=== PATIENT | female | born 1990 | race Caucasian/White ===

== ENCOUNTER → 2017-12-24 | Outpatient (CLI) | payer OTHER | LOC: M RAD 12:34 | DX: Z36.89 Encounter for other specified antenatal screening (principal); Z3A.20 20 weeks gestation of pregnancy | CPT/HCPCS: 76817 ==

== ENCOUNTER → 2018-04-14 | Outpatient (REF) | payer OTHER ==
[2018-04-14 13:18] LABS: HEMATOCRIT 39.5 % (36.0-47.0); HEMOGLOBIN 13.6 g/dl (12.0-15.5); MEAN CORPUSCULAR HEMOGLOBIN 31.5 pg (27.0-33.0); MEAN CORPUSCULAR HGB CONC 34.4 g/dl (32.0-36.5); MEAN CORPUSCULAR VOLUME 91.4 fl (80.0-96.0); PLATELET COUNT, AUTOMATED 190 10^3/uL (150-450); RED BLOOD COUNT 4.32 10^6/uL (4.00-5.40); RED CELL DISTRIBUTION WIDTH 13.6 % (11.5-14.5); WHITE BLOOD COUNT 11.5 10^3/uL (4.0-10.0)
[2018-04-14 14:05] LABS: RUBELLA IgG QUALITATIVE IMMUNE (IMMUNE)
[2018-04-14 14:06] LABS: HBsAg Prenatal NEGATIVE (NEGATIVE)
[2018-04-14 14:33] LABS: HEPATITIS C VIRUS ABY INDEX 0.1 INDEX (<0.8)
[2018-04-14 14:34] LABS: HIV 1&2 SCREEN CENTAUR NEGATIVE (NEGATIVE)
== END ==
LOC: M LAB REF 13:06
DX: Z34.83 Encounter for supervision of other normal pregnancy, third trimester (principal); Z36.85 Encounter for antenatal screening for Streptococcus B; Z36.89 Encounter for other specified antenatal screening
CPT/HCPCS: 86762

== ENCOUNTER 2018-04-30 00:32 | Inpatient (IN) | payer OTHER ==
[2018-04-30] MEDS: LR 800 ML IV (01:24)
[2018-04-30 01:44] LABS: HEMATOCRIT 40.2 % (36.0-47.0); HEMOGLOBIN 13.8 g/dl (12.0-15.5); MEAN CORPUSCULAR HEMOGLOBIN 31.9 pg (27.0-33.0); MEAN CORPUSCULAR HGB CONC 34.3 g/dl (32.0-36.5); MEAN CORPUSCULAR VOLUME 92.8 fl (80.0-96.0); PLATELET COUNT, AUTOMATED 153 10^3/uL (150-450); RED BLOOD COUNT 4.33 10^6/uL (4.00-5.40); RED CELL DISTRIBUTION WIDTH 13.9 % (11.5-14.5); WHITE BLOOD COUNT 14.4 10^3/uL (4.0-10.0)
[2018-04-30] MEDS ORDERED: NALOXONE INJ 0.4 MG/1 ML VIAL (J2310) IV (02:28)
[2018-04-30] MEDS ORDERED: LACTATED RINGER'S 1000 ML IV (02:28)
[2018-04-30] MEDS ORDERED: diphenhydrAMINE INJ 50MG/ML VIAL (J1200) IV (02:28)
[2018-04-30] MEDS ORDERED: EPIDURAL COMMENT XX (02:28)
[2018-04-30] MEDS ORDERED: REFRIGERATOR IV KEYS XX (02:28)
[2018-04-30] MEDS ORDERED: FENTANYL/ROPIVACAINE/NACL BAG 200 ML EPIDURAL (02:28)
[2018-04-30] MEDS ORDERED: EPIDURAL/PCA KEYS XX (02:28)
[2018-04-30] MEDS ORDERED: ePHEDrine SULFATE 25 MG/5 ML(5MG/ML) SYRINGE IV (02:28)
[2018-04-30] MEDS ORDERED: ONDANSETRON 4MG/2ML VIAL (J2405) IV (02:28)
[2018-04-30] MEDS ORDERED: FENTANYL 2MCG/ML ROPIVACAINE 0.2% IN 0.9% NACL 200ML IVBAG As Ordered (02:28)
[2018-04-30] MEDS: LR 1,000 ML IV (03:00)
[2018-04-30] MEDS ORDERED: ePHEDrine SULFATE 25 MG/5 ML(5MG/ML) SYRINGE As Ordered (03:23)
[2018-04-30] MEDS ORDERED: OXYTOCIN 30 UNITS IN 0.9% NaCl 500ML IV BAG (J2590) As Ordered (03:43)
[2018-04-30] MEDS: OXYTOCIN DRIP 30 UNITS in APPROPRIATE DILUENT 1 EA IV (04:09)
[2018-04-30 04:22] LABS: CORD GAS ABE V -4.1; CORD GAS HCO3 V 21.3 MEQ/L; CORD GAS O2 SAT V 73.1 %; CORD GAS PCO2 V 40.2 mmHg; CORD GAS PH V 7.342 UNITS; CORD GAS PO2 V 28.7 mmHg; CORD GAS SBC V 20.5 MEQ/L; CORD GAS TCO2 V 22.5 MEQ/L
[2018-04-30] MEDS ORDERED: METHYLERGONOVINE MALEATE 0.2 MG TAB PO (04:30)
[2018-04-30] MEDS ORDERED: DOCUSATE SODIUM 100 MG CAP PO (04:30)
[2018-04-30] MEDS ORDERED: MEASLES,MUMPS,RUBELLA VACCINE INJ (MMR-II) (90707) SC (04:30)
[2018-04-30] MEDS ORDERED: RHOGAM 300 MCG (1500 IU) INJ (J2790) IM (04:30)
[2018-04-30] MEDS: PRENATAL VITAMINS CHEWABLE TABLET PO (09:13)
[2018-04-30] MEDS: IBUPROFEN 800 MG TAB PO ×2 (11:21→19:22)
[2018-04-30] MEDS: ACETAMINOPHEN 500 MG TAB PO (15:33)
[2018-04-30] MEDS: DIBUCAINE 1% OINTMENT 30GM TOP (15:33)
[2018-05-01] MEDS: IBUPROFEN 800 MG TAB PO (05:20)
[2018-05-01] MEDS: PRENATAL VITAMINS CHEWABLE TABLET PO (08:13)
[2018-05-01] MEDS: medroxyPROGESTERone ACET IM SUSP 150 MG/ML VIAL (J1050) IM (08:46)
[2018-05-01] MEDS: ADACEL/BOOSTRIX VACCINE (DIPHTH/PERTUSS/ACELL/TETANUS)0.5ML SYR (90715) IM (08:47)
== END 2018-05-01 10:20 | disposition home or self-care (01) | DRG 560 ==
LOC: M LDO 00:32 → M LDI 01:11 → M OBS 06:17
PROVIDERS: Obstetrics & Gynecology
PROC: 10E0XZZ Delivery of Products of Conception, External Approach (ICD-10-PCS; principal; 2018-04-30)
PROC: 0HQ9XZZ Repair Perineum Skin, External Approach (ICD-10-PCS; 2018-04-30)
PROC: 10907ZC Drainage of Amniotic Fluid, Therapeutic from Products of Conception, Via Natural or Artificial Opening (ICD-10-PCS; 2018-04-30)
DX: O99.334 Smoking (tobacco) complicating childbirth (principal); F17.210 Nicotine dependence, cigarettes, uncomplicated; Z3A.38 38 weeks gestation of pregnancy; O32.6XX0 Maternal care for compound presentation, not applicable or unspecified; Z37.0 Single live birth; O70.0 First degree perineal laceration during delivery

== ENCOUNTER 2019-05-25 18:20 | Emergency (ER) | payer OTHER, SELFPAY ==
[~2019-05-25] VITALS: Ht 165.1 cm; Wt 86.4 kg
[~2019-05-25 18:20] MED LIST: ACET500L PO; COLA100C5 PO; MOTR200T44 PO; OMEP40CA2 PO; PRENTAB55 PO; PROG1CAP8 PO; TUMS500C PO
[2019-05-25] MEDS ORDERED: NS 1,000 ML IV ONE ×2 (18:30→19:30)
[2019-05-25] MEDS: HYDROMORPHONE HCL 0.5 MG/ 0.5 ML SYRINGE (J1170 PER 1) IV PRN ×2 (18:48→19:19)
[2019-05-25 18:54] LABS: BASO # 0.1 10^3/uL (0.0-0.2); BASO % 0.6 % (0.0-1.0); EOS # 0.3 10^3/uL (0.0-0.50); HEMOGLOBIN 14.9 g/dl (12.0-15.5); LYMPH # 2.9 10^3/uL (1.5-6.5); LYMPH % 23.4 % (24.0-44.0); MEAN CORPUSCULAR HEMOGLOBIN 31.2 pg (27.0-33.0); MEAN CORPUSCULAR HGB CONC 34.7 g/dl (32.0-36.5); MEAN CORPUSCULAR VOLUME 90.1 fl (80.0-96.0); MONO % 7.9 % (0.0-5.0); NEUTROPHILS # 8.3 10^3/uL (1.8-7.7); NEUTROPHILS % 65.6 % (36.0-66.0); PLATELET COUNT, AUTOMATED 208 10^3/uL (150-450); RED BLOOD COUNT 4.77 10^6/uL (4.00-5.40); WHITE BLOOD COUNT 12.6 10^3/uL (4.0-10.0)
[2019-05-25] MEDS ORDERED: ISOVUE-370 76% 100ML VIAL (Q9967) As Ordered ONE (19:04)
[2019-05-25 19:23] LABS: ALBUMIN 3.8 GM/DL (3.2-5.2); BILIRUBIN,DIRECT 0.1 MG/DL (0.0-0.2); BILIRUBIN,TOTAL 0.6 MG/DL (0.2-1.0); TOTAL PROTEIN 7.3 GM/DL (6.4-8.2)
[2019-05-25] MEDS ORDERED: KETOROLAC 30 MG/ML VIAL (J1885) As Ordered ONE (19:25)
[2019-05-25] MEDS ORDERED: KETOROLAC 30 MG/ML VIAL (J1885) IV ONE ×2 (19:30→21:15)
--- NOTE | 2019-05-25 19:55 | REPVR ---
EXAM: CT Abdomen and Pelvis With Contrast EXAM DATE/TIME: 05/25/2019 7:06 PM CLINICAL HISTORY: 28 years old, female; Abdominal pain; Localized; Right lower quadrant (rlq); Additional info: Abdominal pain, rlq TECHNIQUE: Imaging protocol: Computed tomography images of the abdomen and pelvis with intravenous contrast. Radiation optimization: All CT scans at this facility use at least one of these dose optimization techniques: automated exposure control; mA and/or kV adjustment per patient size (includes targeted exams where dose is matched to clinical indication); or iterative reconstruction. Contrast material: ISOVUE 370; Contrast volume: 100 ml; Contrast route: IV; COMPARISON: US OBS SINGEL GEST 12/24/2017 12:48 PM FINDINGS: Liver: There is mild diffuse decrease in hepatic parenchymal density, consistent with mild fatty infiltration. Gallbladder and bile ducts: Normal. No calcified stones. No ductal dilation. Pancreas: Normal. No ductal dilation. Spleen: Normal. No splenomegaly. Adrenals: Normal. No mass. Kidneys and ureters: There is a 5 mm. obstructive ureteral calculus located at the right UV junction resulting in moderate to severe proximal hydroureteronephrosis. There is no significant periureteral and perinephric stranding. No urinoma demonstrated. Stomach and bowel: Normal. No obstruction. No mucosal thickening. Appendix: Normal appendix. Intraperitoneal space: Normal. No free air. No significant fluid collection. Vasculature: Normal. No abdominal aortic aneurysm. Lymph nodes: Normal. No enlarged lymph nodes. Bladder: Unremarkable as visualized. Reproductive: Unremarkable as visualized. Bones/joints: No acute fracture. No dislocation. Soft tissues: Unremarkable. Other findings: Spina bifida occulta. IMPRESSION: 1. There is a 5 mm. obstructive ureteral calculus located at the right UV junction resulting in moderate to severe proximal hydroureteronephrosis. There is no significant periureteral and perinephric stranding. No urinoma demonstrated. 2. There is mild diffuse decrease in hepatic parenchymal density, consistent with mild fatty infiltration. Electronically signed by: Demarco Florentino On 05/25/2019 19:54:42 PM
[2019-05-25] MEDS ORDERED: TAMSULOSIN 0.4 MG CAP PO ONE (20:15)
[2019-05-25] MEDS ORDERED: IBUP-1022 PO (21:26)
[2019-05-25] MEDS ORDERED: CIPR250T3 PO (21:26)
[2019-05-25] MEDS ORDERED: FLOM0.4C39 PO (21:26)
[2019-05-25 21:30] VITALS: BP 133/73
[2019-05-25] MEDS ORDERED: CIPROFLOXACIN 250 MG TAB PO ONE (21:30)
[2019-05-25] MEDS ORDERED: OXYCODONE/APAP 5MG/325MG(BULK FOR ED) 1 TABLET PO ONE (21:30)
== END 2019-05-25 22:23 | disposition home or self-care (01) ==
LOC: M ED 18:20
DX: N20.1 Calculus of ureter (principal); N13.2 Hydronephrosis with renal and ureteral calculous obstruction; K21.9 Gastro-esophageal reflux disease without esophagitis; F32.9 Major depressive disorder, single episode, unspecified; Z72.0 Tobacco use; Z79.899 Other long term (current) drug therapy
CPT/HCPCS: 74177; 80047; 80076; 81001; 83605; 83690; 84702; 85025; 86850; 86900; 86901; 87040; 87086; 93041; 96361; 96374; 96375; 96376; 99285; J1170; J1885; Q9967

== ENCOUNTER → 2019-12-06 | Outpatient (REF) | payer OTHER ==
[~2019-12-06] MED LIST changes: +CIPR250T3 PO; +FLOM0.4C39 PO; +IBUP-1022 PO; -OMEP40CA2 PO; +OMEP40CA97 PO
[2019-12-06 13:36] LABS: HEMATOCRIT 43.9 % (36.0-47.0); MEAN CORPUSCULAR HEMOGLOBIN 31.3 pg (27.0-33.0); MEAN CORPUSCULAR HGB CONC 34.2 g/dl (32.0-36.5); MEAN CORPUSCULAR VOLUME 91.6 fl (80.0-96.0); PLATELET COUNT, AUTOMATED 232 10^3/uL (150-450); RED BLOOD COUNT 4.79 10^6/uL (4.00-5.40); WHITE BLOOD COUNT 9.2 10^3/uL (4.0-10.0)
[2019-12-06 14:27] LABS: HCG, SERUM QUANTITATIVE 20605 MIU/ML
[2019-12-07 09:54] LABS: RUBELLA IgG QUALITATIVE IMMUNE (IMMUNE)
[2019-12-07 09:57] LABS: HEPATITIS B SURFACE ANTIGEN NEGATIVE (NEGATIVE)
[2019-12-07 10:24] LABS: HEPATITIS C VIRUS ABY INDEX < 0.0 INDEX (<0.8)
[2019-12-07 10:25] LABS: HIV 1&2 SCREEN CENTAUR NEGATIVE (NEGATIVE)
== END ==
LOC: M LAB REF 12:42
PROVIDERS: ATTEND Obstetrics & Gynecology
DX: O36.80X0 Pregnancy with inconclusive fetal viability, not applicable or unspecified (principal)

== ENCOUNTER → 2019-12-08 | Outpatient (CLI) | payer OTHER ==
--- NOTE | 2019-12-08 14:10 | REP ---
FIRST TRIMESTER ULTRASOUND: Real-time sonographic evaluation of the gravid uterus is performed. There is a single living intrauterine gestation. The estimated gestational age is 6 weeks 3 days based on a crown-rump length of 6 mm. EDC 07/30/2020. heart rate 120 beats per minute. There is no subchorionic hemorrhage. There is a cystic structure of the left ovary 2.7 x 1.9 x 2.2 cm probably representing a corpus luteum. Electronically Signed by Jamaal Eason MD 12/08/2019 08:15 P
== END ==
LOC: M RAD 12:01
PROVIDERS: ATTEND Obstetrics & Gynecology
DX: O36.80X0 Pregnancy with inconclusive fetal viability, not applicable or unspecified (principal)

== ENCOUNTER → 2020-03-16 | Outpatient (CLI) | payer OTHER ==
--- NOTE | 2020-03-17 08:06 | REP ---
REASON: anatomy. Multiple ultrasonographic images of the gravid uterus show a single living intrauterine gestation in the cephalic presentation. Doppler interrogation of the heart shows a heart rate of 147 beats per minute. The placenta is posterior fundal and not low lying. The subjective amniotic fluid volume is within normal limits. The cervix measures 3.9 cm in length and is closed. Evaluation of the maternal adnexal spaces shows no abnormalities. CHART: BPD 5.1 cm = 21 weeks 2 days HC 18.5 cm = 20 weeks 6 days AC 16.2 cm = 21 weeks 2 days FL 3.5 cm = 20 weeks 6 days The estimated weight is 399 grams, which is at the 64th percentile for a 20-week 4-day gestational age. anatomical structures seen as unremarkable are as follows: Thalami, cavum septum pellucidum, cerebellum, cisterna magna, cerebral ventricles, upper lip, four-chamber heart, left ventricular outflow tract, stomach, cord insertion, three-vessel umbilical cord, kidneys, bladder, spine and lower extremities. The right ventricular outflow tract and upper extremities were suboptimally visualized. IMPRESSION: Single living intrauterine gestation, as described above, with an estimated gestational age of 21 weeks 1 day via composite criteria and an estimated date of delivery of 07/26/2020 by today's exam. No anomalies were detected; however, I recommend a followup examination to better visualize those anatomical structures not well seen today, as described above. Electronically Signed by Case Pascal DO 03/19/2020 08:33 A
== END ==
LOC: M RAD 15:04
PROVIDERS: ATTEND Obstetrics & Gynecology
DX: Z34.82 Encounter for supervision of other normal pregnancy, second trimester (principal); Z36.89 Encounter for other specified antenatal screening; Z3A.21 21 weeks gestation of pregnancy

== ENCOUNTER 2020-04-13 06:51 | Emergency (ER) | payer OTHER ==
[~2020-04-13] VITALS: Ht 165.1 cm; Wt 80.0 kg
[2020-04-13] MEDS ORDERED: NS 1,000 ML IV ONE (07:15)
[2020-04-13] MEDS ORDERED: levETIRAcetam INJection 1,000 MG in D5W 100 ML IV ONE (07:30)
[2020-04-13 07:38] LABS: BASO % 0.3 % (0.0-1.0); EOS # 0.1 10^3/uL (0.0-0.5); EOS % 0.8 % (0.0-3.0); HEMATOCRIT 36.7 % (36.0-47.0); HEMOGLOBIN 12.4 g/dl (12.0-15.5); LYMPH # 1.5 10^3/uL (1.5-5.0); LYMPH % 12.9 % (24.0-44.0); MEAN CORPUSCULAR HEMOGLOBIN 31.2 pg (27.0-33.0); MEAN CORPUSCULAR HGB CONC 33.8 g/dl (32.0-36.5); MEAN CORPUSCULAR VOLUME 92.2 fl (80.0-96.0); MONO # 0.4 10^3/uL (0.0-0.8); MONO % 3.8 % (0.0-5.0); NEUTROPHILS # 9.1 10^3/uL (1.5-8.5); NEUTROPHILS % 81.2 % (36.0-66.0); PLATELET COUNT, AUTOMATED 179 10^3/uL (150-450); RED BLOOD COUNT 3.98 10^6/uL (4.00-5.40); WHITE BLOOD COUNT 11.3 10^3/uL (4.0-10.0)
[2020-04-13] MEDS ORDERED: ACETAMINOPHEN TAB 650MG DOSE (2X325MG) PO ONE (08:00)
[2020-04-13 08:08] LABS: ALBUMIN 2.9 GM/DL (3.2-5.2); ALT/SGPT 22 U/L (12-78); BILIRUBIN,DIRECT < 0.1 MG/DL (0.0-0.2); BILIRUBIN,TOTAL 0.3 MG/DL (0.2-1.0); TOTAL PROTEIN 6.5 GM/DL (6.4-8.2)
--- NOTE | 2020-04-13 08:42 | REP ---
REASON: limited ob ultrasound requested to assess amniotic fluid volume. Multiple ultrasonographic images of the gravid uterus show a single intrauterine gestation in the gregg breech presentation. Doppler interrogation of the heart shows the heart rate at 156 beats per minute. The placenta is fundal right lateral and not low lying. The subjective amniotic fluid volume is within normal limits. Doppler interrogation of the umbilical artery shows an A/B ratio of 2.76. This is within the normal range. IMPRESSION: Limited OB ultrasound as described above. Electronically Signed by Case Pascal DO 04/13/2020 09:18 A
[2020-04-13 09:00] VITALS: BP 118/68
[2020-04-13] MEDS ORDERED: KEPP1TAB PO (09:18)
== END 2020-04-13 09:29 | disposition home or self-care (01) ==
LOC: M ED 06:51
DX: O99.350 Diseases of the nervous system complicating pregnancy, unspecified trimester (principal); O99.330 Smoking (tobacco) complicating pregnancy, unspecified trimester; Z3A.00 Weeks of gestation of pregnancy not specified
CPT/HCPCS: 76815; 80047; 80076; 85025; 86850; 86900; 86901; 99284; J1953

== ENCOUNTER → 2020-05-22 | Outpatient (REF) | payer MEDICAID, OTHER ==
[~2020-05-22] MED LIST changes: +KEPP1TAB PO; +OMEP-221 PO; +ZOFR4TAB16 PO
[2020-07-09 21:57] LABS: BASO % 0.2 % (0.0-1.0); EOS # 0.1 10^3/uL (0.0-0.5); EOS % 1.1 % (0.0-3.0); HEMATOCRIT 37.3 % (36.0-47.0); HEMOGLOBIN 12.5 g/dl (12.0-15.5); LYMPH # 2.5 10^3/uL (1.5-5.0); LYMPH % 23.1 % (24.0-44.0); MEAN CORPUSCULAR HEMOGLOBIN 31.5 pg (27.0-33.0); MEAN CORPUSCULAR HGB CONC 33.5 g/dl (32.0-36.5); MONO # 0.6 10^3/uL (0.0-0.8); MONO % 5.5 % (0.0-5.0); NEUTROPHILS # 7.4 10^3/uL (1.5-8.5); NEUTROPHILS % 69.3 % (36.0-66.0); PLATELET COUNT, AUTOMATED 158 10^3/uL (150-450); RED BLOOD COUNT 3.97 10^6/uL (4.00-5.40); WHITE BLOOD COUNT 10.7 10^3/uL (4.0-10.0)
== END ==
LOC: M SFHCWAGY 11:41
PROVIDERS: ATTEND Advanced Practice Midwife
DX: Z34.80 Encounter for supervision of other normal pregnancy, unspecified trimester (principal); Z3A.00 Weeks of gestation of pregnancy not specified

== ENCOUNTER → 2020-06-14 | Outpatient (CLI) | payer OTHER | LOC: M LAB 08:16 | PROVIDERS: ATTEND Advanced Practice Midwife | DX: Z34.83 Encounter for supervision of other normal pregnancy, third trimester (principal) ==

== ENCOUNTER → 2020-07-03 | Outpatient (REF) | payer OTHER, MEDICAID | LOC: M SFHCWAGY 13:02 | PROVIDERS: ATTEND Obstetrics & Gynecology | DX: Z34.83 Encounter for supervision of other normal pregnancy, third trimester (principal); Z36.89 Encounter for other specified antenatal screening ==

== ENCOUNTER 2020-07-05 12:39 | Outpatient (CLI) | payer OTHER, MEDICAID ==
[~2020-07-05] VITALS: Ht 162.6 cm; Wt 85.7 kg
[~2020-07-05 12:39] MED LIST changes: -OMEP-221 PO; -ZOFR4TAB16 PO
[2020-07-05 13:07] VITALS: BP 137/77
[2020-07-05] MEDS ORDERED: ZOFR4TAB16 PO (13:23)
[2020-07-05 15:05] VITALS: BP 135/92
--- NOTE | 2020-07-05 16:40 | IPNPDOC ---
Text Note Date of Service The patient was seen on 07/05/20. NOTE Triage Note Lashonda is a 29yo with SIUP at 37w0d presenting for CC of regular ctx, q5min. She was seen in the office 2 days ago and SCE was 3/75/-2, posterior. She had ctx q7min yesterday and was told to wait until they were closer to come in. No LOF, good movement. No VB. No f/c/n/v. Vitals overall wnl (one diastolic of 92 with all other bp's normal) General: WDWN, NAD, resting comfortably Abdomen: soft, gravid, NTTP Extremities: no edema of BLE SCE: 4/80/-2, posterior and unchanged when re-checked 2 hours later Cat I FHRT with +accels, -decels, mod criss Latimer: irreg ctx A/P: Lashonda is a 29yo with SIUP at 37w0d with no e/o active labor. Vitals overall wnl, benign exam. Reassuring status. SCE 4/80/-2, posterior- unchanged over 2 hours -Patient has next OB appt in 8 days, instructed her to call clinic and move appt up to Mon/Tues -Increase hydration -Discussed return precautions at length -Safe for discharge home MD BLAIR Chun Fishbone, I+[place] KRISHNA I+Tereso Vital Signs Date Time Temp Pulse Resp B/P (MAP) Pulse Ox O2 Delivery O2 Flow Rate FiO2 07/05/20 15:05 103 18 135/92 (106) 07/05/20 13:07 97.4 Room Air Prachi Erwin MD Jul 05, 2020 16:40
== END 2020-07-05 16:15 | disposition home or self-care (01) ==
LOC: M LDO 12:39
PROVIDERS: ATTEND Obstetrics & Gynecology
DX: O26.893 Other specified pregnancy related conditions, third trimester (principal); Z3A.37 37 weeks gestation of pregnancy

== ENCOUNTER 2020-07-17 13:32 | Outpatient (CLI) | payer OTHER, MEDICAID ==
[~2020-07-17] VITALS: Ht 165.1 cm; Wt 87.3 kg
[~2020-07-17 13:32] MED LIST changes: +ZOFR4TAB16 PO
[2020-07-17 13:40] VITALS: BP 134/81
[2020-07-17] MEDS ORDERED: ACETAMINOPHEN 500 MG TAB PO ONE (14:30)
--- NOTE | 2020-07-17 15:05 | IPNPDOC ---
Text Note Date of Service The patient was seen on 07/17/20. NOTE Subjective: Lashonda is a 29-year-old female who is a at 38.5 weeks gestation with an GIRISH of 07/27/20 based off of her LMP. She initiated care in her first trimester with [facility]. Her has been complicated by an umbilical hernia. She presents to L&D with complaints of pain at her umbilicus that got worse over the last 3 hours. She reports that the pain is now gone. Pain was constant. Reports active movement. Denies leaking of fluid, contractions, or leaking of fluid. Reports she didn't take anything for her pain when it was occurring. Objective: VS: see below. FHR 130, moderate variability, positive accelerations, no decelerations. Contractions: occasional. A+Ox3; Respiratory: regular rate with no use of accessory muscles. Abdomen: umbilical hernia noted with palpation. Abdomen soft and nontender to palpation. SVE: 4/75/-2. No change from exam done 07/05/20. Assessment: IUP at 38.5 weeks gestation, resolved strangulated hernia, not in active labor Plan: Patient desires elective IOL as she reports she "wants this over." IOL scheduled for 39 weeks on 07/19/20. Reviewed induction process. Patient discharged to home. Reviewed access to care, kick count, labor signs, and danger signs to report. Patient encouraged to call with any changes. VS,Fishbone, I+O VS, Fishbone, I+O VS: 134/81; 106 HR; RR 18; 97.3 YOAN SCOTT CNM Jul 17, 2020 15:05
== END 2020-07-17 14:45 | disposition home or self-care (01) ==
LOC: M LDO 13:32
PROVIDERS: ATTEND Advanced Practice Midwife
DX: O47.1 False labor at or after 37 completed weeks of gestation (principal); Z3A.38 38 weeks gestation of pregnancy

== ENCOUNTER 2020-07-20 14:41 | Inpatient (IN) | payer OTHER, MEDICAID ==
[~2020-07-20] VITALS: Ht 160 cm; Wt 87.3 kg
[2020-07-20] VITALS (26 sets, daily range): BP systolic 104–170; BP diastolic 62–102
[2020-07-20] MEDS ORDERED: OMEP-221 PO (14:50)
[2020-07-20] MEDS ORDERED: LACTATED RINGER'S 1000 ML IV STA (15:11)
[2020-07-20 15:27] LABS: HEMATOCRIT 37.2 % (36.0-47.0); HEMOGLOBIN 12.4 g/dl (12.0-15.5); MEAN CORPUSCULAR HEMOGLOBIN 30.7 pg (27.0-33.0); MEAN CORPUSCULAR HGB CONC 33.3 g/dl (32.0-36.5); MEAN CORPUSCULAR VOLUME 92.1 fl (80.0-96.0); PLATELET COUNT, AUTOMATED 193 10^3/uL (150-450); RED BLOOD COUNT 4.04 10^6/uL (4.00-5.40); WHITE BLOOD COUNT 16.5 10^3/uL (4.0-10.0)
[2020-07-20] MEDS ORDERED: LR 1,000 ML IV SCH (16:22)
[2020-07-20] MEDS ORDERED: OXYTOCIN 30 UNITS IN 0.9% NaCl 500ML IV BAG (J2590) As Ordered ONE (16:25)
[2020-07-20] MEDS ORDERED: OXYTOCIN DRIP 30 UNITS in IV 1 EA IV SCH ×2 (16:30→21:14)
--- NOTE | 2020-07-20 16:30 | HPEPDOC ---
Obstetrical History & Physical General Date of Admission Jul 20, 2020 at 14:41 History of Present Illness Chief Complaint: Induction of labor (Elective for Advanced Dilation at 39wks) Information Provided By: Patient Age: 29 : 3 Term: 2 Pre-term: 0 Abortions: 0 Livin Care Care: Good Care Dating Final EDC: Jul 27, 2020 Final EDC by: LMP LMP: Oct 21, 2019 EGA at Admission: 39.0 Antepartum Course Height (inches): 63 Admission Weight (lbs.): 192 Past Medical History Past Obstetrical History #1: Past Obstetrical History: Primgravida Date of Delivery: Jul 29, 2016 Type of Delivery: Spontaneous Vaginal Del. Sex of Infant: Female (6lb 5oz. ) Complications: No Past Obstetrical History #2: Past Obstetrical History: Multigravida Date of Delivery: Apr 30, 2018 Type of Delivery: Spontaneous Vaginal Del. 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 Pylori treated in 04/2010, vitamin D deficiency Surgical History: Denies/None Family History Significant Family History: Diabetes (MGM), Heart disease (MGF - [place]), Hypertension (MGM), Other (PGM and Father - Sleep Apnea; Mother- Anxiety/depression) Social History Marital Status: Single Family situation: Spouse/partner home Psychosocial History: Anxiety, Depression, Other (Panic attacks) * Smoker: current smoker (0.5PPD) Alcohol: Denies Drugs: denies Imunizations Tdap status: needs Influenza Status: needs Allergies Coded Allergies: No Known Allergies (Verified , 01/16/10) Medications Scheduled Levetiracetam (Keppra) 500 Mg Tablet, 1 TAB PO BID 500 mg every 12 hours for 1 week Then 750 mg every 12 hours until seen by Dr. Lemus. Omeprazole (Omeprazole) 40 Mg Capsule.dr, 1 CAP PO DAILY [id number]/Iron Fum/Folic/Docusate ( 19 Tablet) 1 Tab Tab, 1 DAY PO DAILY Scheduled PRN Ondansetron HCl (Zofran) 4 Mg Tablet, 1 TAB PO Q6-8HP PRN for nausea/vomiting Physical Examination Physical Examination GENERAL: Alert and oriented times three. BREAST: . ABDOMEN: Gravid and non-tender to touch. FETUS: Is vertex (VTX) by sterile vaginal examination (SVE), fetus is vertex (VTX) by Artemio. EFW 6.5-7lbs by Leopolmirna. HEART RATE: Regular rate and rhythm. LUNGS: Clear to auscultation (CTA). EXTREMITIES: No edema. No clonus. Deep tendon reflexes (DTRs) + 2. Laboratory Data 24H LABS Laboratory Tests 2 07/20/20 14:47: Serology Scanned Report Hepatitis B Testing 07/20/20 15:07: Nucleated Red Blood Cells % (auto) 0.0 CBC/BMP Laboratory Tests 07/20/20 15:07 Pertinent Laboratoy Data Blood Type: A+ RBC Antibody Screen: Negative HIV: Negative Hepatitis B: Negative Hepatitis C: Negative Rapid Plasma Reagin: Nonreactive Rubella: Immune Chlamydia/Gonorrhea: Unknown (Late Transfer of Care ) Group B Streptococcus: Negative Glucose Tolerance Test: 136 Diag/Inter Therapy 3hr. GTT: 84/141/145/78 Anatomy Ultrasound Ultrasound Date: Mar 16, 2020 Placenta Location: Posterior (Fundal) Normal Anatomy: Yes (Suboptimal views of the ventricular outflow tract and fe jaelyn upper extremities, F/U done) Placenta Previa: No Estimated Weight (grams): 399 Other Ultrasounds 12/08/19 - 1st trimester scan at 6wks. 3days, no abnormalities. 04/13/20 - Amniotic fluid volume within normal limits, Umbilical artery doppler 2.76. Steroid Therapy Steroid Therapy: No Vaginal Examination Dilation: 5 cm (5-6) Effacement: 80% Station: -1 Cervical Consistency: Soft Cervical Position: Posterior Presentation: Cephalic presentation Assessment Heart Rate (FHR): 135 Variability: Moderate Accelerations: Positive Decelerations: None Tocometer Contractions: Yes Frequency: irregular, less than 9 min/apart Duration: greater than 60 seconds Strength: palpated as mild Multi-drug resistant Organism: No history of MDRO Assessment/Plan Assessment Lashonda is a 29-year-old (G)3 para (P)2-0-0-2 at 39+0 weeks by LMP. Presents to Labor and Delivery (L&D) for an elective induction of labor with advanced dilation. Reports irregular contractions and good movement. Denies LOF, vaginal bleeding. SVE with informed consent, 5-6/80/-2, soft and stretchy, posterior. Plan Admit and orient. Stone Rigger and consent. Diet: Clear Liquid. Group B Streptococcus (GBS) negative. Labs and intravenous (IV) per unit protocol. Counseled on Pitocin and induction of labor (IOL). Plans for epidural for pain management. Lactated Ringers (LR): Bolus 500 mL, then at 125 mL/hr. Anticipate normal spontaneous delivery (). C-S as appropriate. Leidy De La Fuente CNM Jul 20, 2020 16:30
[2020-07-20] MEDS ORDERED: FENTANYL 2MCG/ML ROPIVACAINE 0.2% IN 0.9% NACL 100ML IVBAG As Ordered ONE (17:45)
--- NOTE | 2020-07-20 18:40 | IPNPDOC ---
Text Note Date of Service The patient was seen on 07/20/20. NOTE Inpatient Pain well controlled with epidural. Pitocin at 4mu/min. Cat 1 FHT, 130 bpm baseline. UC every 3-5 min, 60-100 seconds long, moderate. SVE 5-6/80/-1 by SIENNA Heart AROM for small amount of clear fluid. Continue with pitocin. Anticipate vaginal delivery. VS,Fishbone, I+O VS, Fishbone, I+O Laboratory Tests 07/20/20 15:07 Leidy De La Fuente CNM Jul 20, 2020 18:40
[2020-07-20] MEDS ORDERED: EPIDURAL COMMENT XX SCH (18:45)
[2020-07-20] MEDS ORDERED: ONDANSETRON 4MG/2ML VIAL IV PRN (18:45)
[2020-07-20] MEDS ORDERED: EPIDURAL/PCA KEYS XX PRN (18:45)
[2020-07-20] MEDS ORDERED: diphenhydrAMINE 50MG/ML VIAL (J1200) IV PRN (18:45)
[2020-07-20] MEDS ORDERED: REFRIGERATOR IV KEYS XX PRN (18:45)
[2020-07-20] MEDS ORDERED: LACTATED RINGER'S 1000 ML IV PRN (18:45)
[2020-07-20] MEDS ORDERED: ePHEDrine SULFATE 25 MG/5 ML(5MG/ML) SYRINGE IV PRN (18:45)
[2020-07-20] MEDS ORDERED: NALOXONE INJ 0.4MG/1ML VIAL (J2310 PER 1MG) IV PRN (18:45)
[2020-07-20] MEDS ORDERED: FENTANYL/ROPIVACAINE/NACL BAG 100 ML EPIDURAL SCH (18:45)
[2020-07-20] MEDS ORDERED: ACETAMINOPHEN TAB 650MG DOSE (2X325MG) PO PRN (21:15)
[2020-07-20] MEDS ORDERED: MEASLES,MUMPS,RUBELLA VACCINE INJ (MMR-II) (90707) SC SCH (21:15)
[2020-07-20] MEDS ORDERED: IBUPROFEN 600MG TAB PO PRN (21:15)
[2020-07-20] MEDS ORDERED: DOCUSATE SODIUM 100 MG CAP PO PRN (21:15)
[2020-07-20] MEDS ORDERED: ANUSOL HC CREAM 30GM TOP PRN (21:15)
[2020-07-20] MEDS ORDERED: RHOGAM 300 MCG (1500 IU) INJ (J2790) IM SCH (21:15)
[2020-07-20] MEDS ORDERED: MOM 30ML SUSPENSION UDC PO PRN (21:15)
[2020-07-20] MEDS ORDERED: METHYLERGONOVINE MALEATE 0.2 MG TAB PO PRN (21:15)
--- NOTE | 2020-07-20 21:36 | DNPDOC ---
[facility] Delivery Note Delivery Note DATE OF DELIVERY: 07/20/20 PREDELIVERY DIAGNOSIS: 39-0/7 weeks' gestation. Induction of labor for advanced dilation POST DELIVERY DIAGNOSIS: Delivered. PROCEDURE: Spontaneous vaginal delivery. PROVIDER: Sue De La Fuente CNM/ [facility] ANESTHESIA: Epidural. ESTIMATED BLOOD LOSS: 300 mL. FINDINGS: 6 pound 10 ounce, 3010g Male , Score 9/9. DELIVERY SUMMARY: Patient is a 29-year-old 3 now para 3-0-0-3 who was ad mitted to labor and delivery for elective IOL with advanced dilation. She progressed quickly with pitocin and AROM to full dilation and +3 station at 2032. She utilized an epidural for labor coping. A viable male infant was delivered at 2037, FCO with strong maternal pushing efforts. placed skin to skin with mother at , 9/9. Delayed cord clamping until no longer pulsating, then clamped x2 and cut by FOB. Placenta was delivered spontaneously and intact, kailyn mechanism at 2048 with gentle cord traction, uterine guarding, and small maternal pushing efforts. IV Pitocin bolus started after placenta, fundal massage, and fundus firmed to U-3 with moderate rubra lochia. 3 Vessel cord was noted. Perineal inspection revealed a 2nd degree laceration, that was repaired with 3.0 Vicryl Rapide, epidural working well for repair. EBL 300mL. No complications with delivery of , both mother and baby left in stable condition. Sponge, sharp and instrument count correct. Leidy De La Fuente CNM Jul 20, 2020 21:36
[2020-07-21] MEDS: ACETAMINOPHEN 500 MG TAB PO PRN ×3 (05:17→20:08)
[2020-07-21 06:20] VITALS: BP 111/76
[2020-07-21] MEDS: DIBUCAINE 1% OINTMENT 30GM TOP PRN (06:37)
--- NOTE | 2020-07-21 07:22 | IPNPDOC ---
Text Note Date of Service The patient was seen on 07/21/20. NOTE Inpatient Reports some cramping and perineal soreness today. Tylenol and Motrin are effective for pain management. VSS, afebrile, normotensive. Fundus firm, midline, at U-2, small lochia, no odor. Voiding and passing flatus without difficulty. Moving around the room without difficulty. Plan for discharge tomorrow AM. VS,Fishbone, I+O VS, Fishbone, I+O Laboratory Tests 07/20/20 15:07 Vital Signs Date Time Temp Pulse Resp B/P (MAP) Pulse Ox O2 Delivery O2 Flow Rate FiO2 07/21/20 06:20 98.5 96 17 111/76 (88) 07/20/20 23:00 100 Room Air I&O- Last 24 Hours up to 6 AM 07/21/20 06:00 Intake Total 1461.15 ml Output Total 1475 ml Balance -13.85 ml Leidy De La Fuente CNM Jul 21, 2020 07:22
[2020-07-21] MEDS: PRENATAL VITAMINS CHEWABLE TABLET PO SCH (07:36)
[2020-07-21] MEDS: IBUPROFEN 800 MG TAB PO PRN (14:11)
[2020-07-21 17:58] VITALS: BP 140/80
[2020-07-22] MEDS: IBUPROFEN 800 MG TAB PO PRN ×2 (00:20→08:09)
[2020-07-22] MEDS: ACETAMINOPHEN 500 MG TAB PO PRN (03:03)
[2020-07-22 05:57] VITALS: BP 123/84
[2020-07-22] MEDS: PRENATAL VITAMINS CHEWABLE TABLET PO SCH (08:39)
[2020-07-22] MEDS: DIBUCAINE 1% OINTMENT 30GM TOP PRN (08:53)
[2020-07-22] MEDS ORDERED: INFLUENZA QUADRIVALENT PF VACCINE 0.5ML SYRINGE IM ONE (09:00)
--- NOTE | 2020-07-22 14:25 | IPNPDOC ---
Progress Note Date of Service: Jul 22, 2020 Day#: 1 Progress Note PPD2 SUBJECT: Lashonda is a 29yo [id number] s/p uncomplicated at 39w0d after undergoing elective IOL, delivering at 2037 on 07/20, doing well day # 2. She has been ambulating, voiding spontaneously without issue and tolerating regular diet. Bottle feeding by choice without issue. Reports lochia is like a normal period. No f/c/n/v/CP/SOB. OBJECTIVE: VITAL SIGNS: Within normal limits, afebrile. Alert and oriented times three. Abdomen: Fundus firm at U-2. Soft, NTTP. Extremities: no pain with palpation of calves ASSESSMENT: Lashonda is a 29yo [id number] s/p uncomplicated at 39w0d after undergoing elective IOL, delivering at 2037 on 07/20, doing well day # 2. Vitals within normal limits, afebrile, hemodynamically stable with no evidence of infection. PLAN: 1. Discharge to home today. 2. Tylenol and Motrin for pain. 3. Encourage ambulation. 4. Desires tubal ligation for contraception, condoms until then 5. Routine PP visit in 6 weeks in clinic. 6. Discussed return precautions at length. Prachi Erwin MD VS, I&O, 24H, Fishbone Vital Signs/I&O Vital Signs Date Time Temp Pulse Resp B/P (MAP) Pulse Ox O2 Delivery O2 Flow Rate FiO2 07/22/20 05:57 97.6 80 17 123/84 (97) 07/21/20 17:58 100 07/20/20 23:00 Room Air Prachi Erwin MD Jul 22, 2020 14:25
--- NOTE | 2020-07-22 14:28 | DS.PDOC ---
Discharge Summary General Date of Admission Jul 20, 2020 at 14:41 Date of Discharge Jul 22, 2020 Discharge Summary PROCEDURES PERFORMED DURING STAY: spontaneous vaginal delivery ADMITTING DIAGNOSES: 1. Elective IOL at 39wk DISCHARGE DIAGNOSES: 1. Elective IOL at 39wk, delivered COMPLICATIONS/CHIEF COMPLAINT: Induction. HISTORY OF PRESENT ILLNESS/HOSPITAL COURSE: Lashonda is a 29yo [id number] s/p uncomplicated at 39w0d after undergoing elective IOL, delivering at 2037 on 07/20, doing well day # 2. Vitals within normal limits, afebrile, hemodynamically stable with no evidence of infection. DISCHARGE MEDICATIONS: Please see below. ALLERGIES: Please see below. PHYSICAL EXAMINATION ON DISCHARGE: VITAL SIGNS: Within normal limits, afebrile. Alert and oriented times three. Abdomen: Fundus firm at U-2. Soft, NTTP. Extremities: no pain with palpation of calves LABORATORY DATA: Please see below. ACTIVITY: As tolerated, vaginal rest 6 weeks DIET: regular DISPOSITION: 01 Home, Self-Care. DISCHARGE PLAN/INSTRUCTIONS: 1. Discharge to home today. 2. Tylenol and Motrin for pain. 3. Encourage ambulation. 4. Desires tubal ligation for contraception, condoms until then 5. Routine PP visit in 6 weeks in clinic. 6. Discussed return precautions at length. DISCHARGE CONDITION: Stable TIME SPENT ON DISCHARGE: Greater than 20 minutes. Prachi Erwin MD Vital Signs/I&Os Vital Signs Date Time Temp Pulse Resp B/P (MAP) Pulse Ox O2 Delivery O2 Flow Rate FiO2 07/22/20 05:57 97.6 80 17 123/84 (97) 07/21/20 17:58 100 07/20/20 23:00 Room Air Discharge Medications Scheduled Levetiracetam (Keppra) 500 Mg Tablet, 1 TAB PO BID 500 mg every 12 hours for 1 week Then 750 mg every 12 hours until seen by Dr. Lemus. Omeprazole (Omeprazole) 40 Mg Capsule.dr, 1 CAP PO DAILY, (Reported) [id number]/Iron Fum/Folic/Docusate ( 19 Tablet) 1 Tab Tab, 1 DAY PO DAILY, (Reported) Scheduled PRN Ondansetron HCl (Zofran) 4 Mg Tablet, 1 TAB PO Q6-8HP PRN for nausea/vomiting, (Reported) Allergies Coded Allergies: No Known Allergies (Verified , 01/16/10) Prachi Erwin MD Jul 22, 2020 14:28
== END 2020-07-22 12:10 | disposition home or self-care (01) | DRG 560 ==
LOC: M LDI 14:41 → M OBS 22:34
PROVIDERS: ADMIT Advanced Practice Midwife; ATTEND Advanced Practice Midwife
PROC: 10E0XZZ Delivery of Products of Conception, External Approach (ICD-10-PCS; principal; 2020-07-20)
PROC: 0KQM0ZZ Repair Perineum Muscle, Open Approach (ICD-10-PCS; 2020-07-20)
PROC: 10907ZC Drainage of Amniotic Fluid, Therapeutic from Products of Conception, Via Natural or Artificial Opening (ICD-10-PCS; 2020-07-20)
PROC: 3E033VJ Introduction of Other Hormone into Peripheral Vein, Percutaneous Approach (ICD-10-PCS; 2020-07-20)
DX: O99.62 Diseases of the digestive system complicating childbirth (principal); K51.90 Ulcerative colitis, unspecified, without complications; K21.9 Gastro-esophageal reflux disease without esophagitis; F17.210 Nicotine dependence, cigarettes, uncomplicated; Z3A.39 39 weeks gestation of pregnancy; Z37.0 Single live birth; O99.334 Smoking (tobacco) complicating childbirth; O70.1 Second degree perineal laceration during delivery

== ENCOUNTER → 2020-09-30 | Outpatient (CLI) | payer OTHER, MEDICAID ==
[~2020-09-30] MED LIST changes: +KEPP1TAB2 PO; +OMEP-221 PO
== END ==
LOC: M LABSMTC 08:19
PROVIDERS: ATTEND Anesthesiology
DX: Z01.812 Encounter for preprocedural laboratory examination (principal); Z20.828 Contact with and (suspected) exposure to other viral communicable diseases

== ENCOUNTER 2020-10-03 06:06 | Day surgery (SDC) | payer OTHER ==
[~2020-10-03] VITALS: Ht 165.1 cm; Wt 87.1 kg
[2020-10-03] MEDS ORDERED: LR 1,000 ML IV ONE (07:00)
[2020-10-03] MEDS ORDERED: BUPIVACAINE HCL 0.25% 30ML VIAL As Ordered ONE (07:09)
[2020-10-03 07:26] LABS: HEMATOCRIT 44.3 % (36.0-47.0); HEMOGLOBIN 14.4 g/dl (12.0-15.5); MEAN CORPUSCULAR HGB CONC 32.5 g/dl (32.0-36.5); MEAN CORPUSCULAR VOLUME 95.3 fl (80.0-96.0); PLATELET COUNT, AUTOMATED 227 10^3/uL (150-450); RED BLOOD COUNT 4.65 10^6/uL (4.00-5.40); WHITE BLOOD COUNT 9.7 10^3/uL (4.0-10.0)
[2020-10-03] MEDS ORDERED: dexameTHASONE 4 MG/ML 1ML VIAL (J1100 PER 1MG) As Ordered ONE (07:52)
[2020-10-03] MEDS ORDERED: HYDROmorphone HCL 2 MG/ML 1ML VIAL (J1170) As Ordered ONE (07:52)
[2020-10-03] MEDS ORDERED: MIDAZOLAM INJ 2MG/2ML VIAL (J2250 PER 1MG) As Ordered ONE (07:52)
[2020-10-03] MEDS ORDERED: ROCURONIUM BROMIDE 50 MG/5 ML VIAL As Ordered ONE (07:52)
[2020-10-03] MEDS ORDERED: LIDOCAINE 2% 100MG/5ML SDV (FOR ANES.) As Ordered ONE (07:52)
[2020-10-03] MEDS ORDERED: fentaNYL 100 MCG/2 ML INJECTION (J3010) As Ordered ONE (07:52)
[2020-10-03] MEDS ORDERED: propofoL 200 MG/20 ML VIAL As Ordered ONE (07:52)
[2020-10-03] MEDS ORDERED: ONDANSETRON 4MG/2ML VIAL As Ordered ONE (07:52)
[2020-10-03] MEDS ORDERED: ACETAMINOPHEN 1000MG 100ML IV BTL (OFIRMEV) (J0131 PER 10MG) As Ordered ONE (07:53)
[2020-10-03] MEDS ORDERED: SUGAMMADEX SODIUM 500 MG/5 ML VIAL (BRIDION) As Ordered ONE (08:01)
[2020-10-03] MEDS ORDERED: KETOROLAC 60MG 2ML VIAL As Ordered ONE (08:02)
--- NOTE | 2020-10-03 08:40 | ROOPDOC ---
[facility] Report Of Operation Report of Operation DATE OF PROCEDURE: 10/03/20 PREPROCEDURE DIAGNOSES: Undesired fertility POSTPROCEDURE DIAGNOSES: same. PROCEDURE: Laparoscopic bilateral salpingectomy. SURGEON: Ivette Luna MD ANESTHESIA: Gen. endotracheal anesthesia. ESTIMATED BLOOD LOSS: Approximately 10 mL. COMPLICATIONS: None. FINDINGS: Normal pelvis including uterus, fallopian tubes and ovaries. Normal upper abdomen. PROCEDURE NOTE: Patient was taken to the operating room where general endotracheal anesthesia induced. She was prepped draped sterile fashion in the dorsal lithotomy position. A sponge stick was placed in the vagina to use as a manipulator. The bladder was emptied with a catheter. A periumbilical incision was made with the scalpel. A Veress needle was placed through this incision while tenting up on the skin of the abdomen.. Intra-abdominal location of the Veress needle was assessed with use of a saline filled syringe. A pneumoperitoneum was created. The Veress needle was removed. A 5 mm trocar using the Visiport was inserted through this incision. A 5 and 8 mm suprapubic port was placed under direct visualization without difficulty. A 5 mm scope with camera used to visualize the abdomen and pelvis. The patient's placed in Trendelenburg position. A grasping instrument was used to elevate each fallopian tube. The fallopian tubes were detached from their broad ligament attachments by using LigaSure. Both fallopian tubes were excised near their origins. Both fallopian tubes removed through the suprapubic ports. All instruments were removed. The pneumoperitoneum was released. The skin was closed with 4-0 Monocryl subcuticular sutures. Sponge, instrument and needle counts are correct. IVETTE LUNA MD Oct 03, 2020 08:40
[2020-10-03] MEDS ORDERED: OXYC1TAB23 PO (08:51)
[2020-10-03] MEDS ORDERED: IBUP-1022 PO (08:53)
[2020-10-03] MEDS ORDERED: LR 1,000 ML IV SCH ×2 (09:00)
[2020-10-03] MEDS ORDERED: METOCLOPRAMIDE INJ 10MG/2ML VIAL (J2765 PER 1) IV PRN (09:00)
[2020-10-03] MEDS ORDERED: ONDANSETRON 4MG/2ML VIAL IV PRN (09:00)
[2020-10-03] MEDS ORDERED: fentaNYL 100 MCG/2 ML INJECTION (J3010) IV PRN (09:00)
[2020-10-03] MEDS ORDERED: PERCOCET 5MG/325MG TAB PO PRN ×2 (09:00)
[2020-10-03 09:40] VITALS: BP 118/71
== END 2020-10-03 10:00 | disposition home or self-care (01) ==
LOC: M SDC 06:06
PROVIDERS: ATTEND Specialist
DX: Z30.2 Encounter for sterilization (principal); E55.9 Vitamin D deficiency, unspecified; F17.210 Nicotine dependence, cigarettes, uncomplicated; F41.9 Anxiety disorder, unspecified; K21.9 Gastro-esophageal reflux disease without esophagitis; K58.9 Irritable bowel syndrome, unspecified; K50.90 Crohn's disease, unspecified, without complications; G40.909 Epilepsy, unspecified, not intractable, without status epilepticus; R06.83 Snoring; Z87.442 Personal history of urinary calculi
CPT/HCPCS: 36415; 58661; 81025; 85027; 88302; J0131; J1100; J1170; J1885; J2250; J2405; J3010

== ENCOUNTER → 2021-03-19 | Outpatient (REF) | payer OTHER ==
[~2021-03-19] MED LIST changes: +OXYC1TAB23 PO
[2021-03-19 13:08] LABS: BASO # 0.1 10^3/uL (0.0-0.2); BASO % 0.8 % (0.0-1.0); EOS # 0.5 10^3/uL (0.0-0.5); EOS % 5.4 % (0.0-3.0); HEMATOCRIT 45.6 % (36.0-47.0); HEMOGLOBIN 14.9 g/dl (12.0-15.5); LYMPH # 2.8 10^3/uL (1.5-5.0); LYMPH % 30.9 % (24.0-44.0); MEAN CORPUSCULAR HGB CONC 32.7 g/dl (32.0-36.5); MEAN CORPUSCULAR VOLUME 91.8 fl (80.0-96.0); MONO # 0.5 10^3/uL (0.0-0.8); MONO % 5.7 % (2.0-8.0); NEUTROPHILS # 5.2 10^3/uL (1.5-8.5); PLATELET COUNT, AUTOMATED 261 10^3/uL (150-450); RED BLOOD COUNT 4.97 10^6/uL (4.00-5.40); WHITE BLOOD COUNT 9.1 10^3/uL (4.0-10.0)
[2021-03-19 13:45] LABS: ALBUMIN 4.4 GM/DL (3.2-5.2); ALT/SGPT 31 U/L (12-78); BILIRUBIN,TOTAL 0.3 MG/DL (0.2-1.0); BLOOD UREA NITROGEN 6 MG/DL (7-18); CALCIUM LEVEL 9.4 MG/DL (8.5-10.1); CARBON DIOXIDE LEVEL 24 MEQ/L (21-32); CHLORIDE LEVEL 111 MEQ/L (98-107); CREATININE FOR GFR 0.62 MG/DL (0.55-1.30); FREE T4 1.07 NG/DL (0.76-1.46); GLOMERULAR FILTRATION RATE > 60.0 (>60); GLUCOSE, FASTING 93 MG/DL (70-100); MAGNESIUM LEVEL 2.4 MG/DL (1.8-2.4); POTASSIUM SERUM 4.3 MEQ/L (3.5-5.1); SODIUM LEVEL 140 MEQ/L (136-145); THYROID STIMULATING HORMONE 0.945 uIU/ML (0.358-3.740); TOTAL 25(OH) VITAMIN D 18.5 NG/ML (30.0-100.0); TOTAL PROTEIN 7.5 GM/DL (6.4-8.2); VITAMIN B12 LEVEL 333 PG/ML
[2021-03-19 14:09] LABS: ERYTHROCYTE SEDIMENTATION RATE 5 mm/hr (0-20)
[2021-03-19 14:41] LABS: FOLATE 13.8 NG/ML
== END ==
LOC: M SFHCADAM 10:40
PROVIDERS: ATTEND Physician Assistant
DX: G40.909 Epilepsy, unspecified, not intractable, without status epilepticus (principal); M54.81 Occipital neuralgia; G43.009 Migraine without aura, not intractable, without status migrainosus; F41.9 Anxiety disorder, unspecified; K21.9 Gastro-esophageal reflux disease without esophagitis; M79.7 Fibromyalgia

== ENCOUNTER → 2021-05-17 | Outpatient (REF) | payer OTHER ==
[~2021-05-17] MED LIST changes: +OMEP40CA4 PO; -OMEP40CA97 PO
[2021-05-17 13:02] LABS: BASO # 0.1 10^3/uL (0.0-0.2); BASO % 0.9 % (0.0-1.0); EOS # 0.7 10^3/uL (0.0-0.5); HEMATOCRIT 45.5 % (36.0-47.0); HEMOGLOBIN 14.9 g/dl (12.0-15.5); LYMPH # 2.7 10^3/uL (1.5-5.0); LYMPH % 29.2 % (24.0-44.0); MEAN CORPUSCULAR HEMOGLOBIN 30.3 pg (27.0-33.0); MEAN CORPUSCULAR HGB CONC 32.7 g/dl (32.0-36.5); MEAN CORPUSCULAR VOLUME 92.5 fl (80.0-96.0); MONO # 0.6 10^3/uL (0.0-0.8); MONO % 6.1 % (2.0-8.0); NEUTROPHILS # 5.1 10^3/uL (1.5-8.5); NEUTROPHILS % 55.5 % (36.0-66.0); PLATELET COUNT, AUTOMATED 241 10^3/uL (150-450); RED BLOOD COUNT 4.92 10^6/uL (4.00-5.40); WHITE BLOOD COUNT 9.1 10^3/uL (4.0-10.0)
[2021-05-17 13:34] LABS: ALBUMIN 3.6 GM/DL (3.2-5.2); ALT/SGPT 28 U/L (12-78); BILIRUBIN,TOTAL 0.7 MG/DL (0.2-1.0); BLOOD UREA NITROGEN 7 MG/DL (7-18); CARBON DIOXIDE LEVEL 24 MEQ/L (21-32); CHLORIDE LEVEL 111 MEQ/L (98-107); CREATININE FOR GFR 0.61 MG/DL (0.55-1.30); GLOMERULAR FILTRATION RATE > 60.0 (>60); GLUCOSE, FASTING 94 MG/DL (70-100); SODIUM LEVEL 141 MEQ/L (136-145); TOTAL PROTEIN 6.8 GM/DL (6.4-8.2)
== END ==
LOC: M LABDRWAD 12:41
PROVIDERS: ATTEND Psychiatry & Neurology Neurology
DX: R56.9 Unspecified convulsions (principal)

== ENCOUNTER → 2021-08-22 | Outpatient (REF) | payer OTHER ==
[2021-08-22 16:15] LABS: BASO # 0.1 10^3/uL (0.0-0.2); BASO % 0.9 % (0.0-1.0); EOS # 0.6 10^3/uL (0.0-0.5); EOS % 4.7 % (0.0-3.0); HEMATOCRIT 45.2 % (36.0-47.0); HEMOGLOBIN 14.9 g/dl (12.0-15.5); LYMPH # 3.1 10^3/uL (1.5-5.0); LYMPH % 26.9 % (24.0-44.0); MEAN CORPUSCULAR HEMOGLOBIN 30.5 pg (27.0-33.0); MEAN CORPUSCULAR VOLUME 92.4 fl (80.0-96.0); MONO # 0.7 10^3/uL (0.0-0.8); MONO % 6.3 % (2.0-8.0); NEUTROPHILS # 7.1 10^3/uL (1.5-8.5); PLATELET COUNT, AUTOMATED 238 10^3/uL (150-450); RED BLOOD COUNT 4.89 10^6/uL (4.00-5.40); WHITE BLOOD COUNT 11.7 10^3/uL (4.0-10.0)
[2021-08-22 16:47] LABS: ALT/SGPT 28 U/L (12-78); BILIRUBIN,TOTAL 0.5 MG/DL (0.2-1.0); BLOOD UREA NITROGEN 5 MG/DL (7-18); CALCIUM LEVEL 9.3 MG/DL (8.5-10.1); CARBON DIOXIDE LEVEL 26 MEQ/L (21-32); CHLORIDE LEVEL 109 MEQ/L (98-107); CREATININE FOR GFR 0.67 MG/DL (0.55-1.30); GLOMERULAR FILTRATION RATE > 60.0 (>60); GLUCOSE, FASTING 94 MG/DL (70-100); POTASSIUM SERUM 3.9 MEQ/L (3.5-5.1); SODIUM LEVEL 141 MEQ/L (136-145); TOTAL PROTEIN 7.2 GM/DL (6.4-8.2)
== END ==
LOC: M LABDRWAD 15:52
PROVIDERS: ATTEND Psychiatry & Neurology Neurology
DX: R56.9 Unspecified convulsions (principal)

== ENCOUNTER → 2021-10-03 | Outpatient (CLI) | payer OTHER ==
--- NOTE | 2021-10-03 11:00 | REP ---
INDICATION: ABD PAIN W/ NAUSEA VOMITING ? UMBILICAL HERNING COMPARISON: None. TECHNIQUE: Limited directed real time hester scale ultrasound examination using linear high-frequency and curved array transducer. FINDINGS: Directed ultrasound examination of the periumbilical region and left upper quadrant demonstrates no obvious fluid collection, mass, or hernia/soft tissue defect. IMPRESSION: No evidence for abnormality or hernia by sonographic evaluation. <Electronically signed by Tyler Begum > 10/03/21 [id number]
--- NOTE | 2021-10-03 11:07 | REP ---
INDICATION: ABD PAIN W/ NAUSEA VOMITING ? UMBILICAL HERNING-US FIRST. COMPARISON: None. TECHNIQUE: Three views total FINDINGS: Supine and upright views of the abdomen show the intestinal gas pattern to be nonspecific. Gas and stool is seen throughout the colon within the rectosigmoid region. The organ silhouettes insofar as delineated appear unremarkable. No abdominal calcific densities are seen within the abdomen or pelvis. The accompanying single frontal view of the chest shows no free subdiaphragmatic air, cardiomegaly, infiltrates or effusions. IMPRESSION: Nonspecific intestinal gas pattern. If a hernia is of clinical concern CT is recommended. <Electronically signed by Case Pascal > 10/03/21 [id number]
== END ==
LOC: M RAD 10:04
PROVIDERS: ATTEND Physician Assistant Medical
DX: R10.84 Generalized abdominal pain (principal)

== ENCOUNTER → 2021-11-14 | Outpatient (CLI) | payer OTHER ==
[~2021-11-14] MED LIST changes: +DULO1CAP4 PO; +GABA-1171 PO; -OMEP-221 PO; +OMEP40CA5 PO
== END ==
LOC: M LABSMTC 09:34
PROVIDERS: ATTEND Anesthesiology
DX: Z01.812 Encounter for preprocedural laboratory examination (principal); Z20.822 Contact with and (suspected) exposure to COVID-19

== ENCOUNTER 2021-11-19 08:35 | Day surgery (SDC) | payer OTHER ==
[~2021-11-19] VITALS: Ht 165.1 cm; Wt 79.8 kg
[~2021-11-19 08:35] MED LIST changes: +NS 1,000 ML IV ONE
[2021-11-19] MEDS ORDERED: ONDANSETRON 4MG/2ML VIAL As Ordered ONE (10:13)
[2021-11-19] MEDS ORDERED: propofoL 200 MG/20 ML VIAL As Ordered ONE (10:13)
[2021-11-19 11:20] VITALS: BP 122/69
== END 2021-11-19 11:30 | disposition home or self-care (01) ==
LOC: M OPP 08:35
PROVIDERS: ATTEND Internal Medicine Gastroenterology
DX: K92.1 Melena (principal); D12.6 Benign neoplasm of colon, unspecified; K64.8 Other hemorrhoids; R19.4 Change in bowel habit; K52.9 Noninfective gastroenteritis and colitis, unspecified; K29.70 Gastritis, unspecified, without bleeding; R12 Heartburn; Z79.899 Other long term (current) drug therapy; F17.210 Nicotine dependence, cigarettes, uncomplicated
CPT/HCPCS: 43239; 45385; 88305; J2405

== ENCOUNTER → 2021-11-27 | Outpatient (CLI) | payer OTHER ==
[~2021-11-27] MED LIST changes: +GASTROGRAFIN SOLUTION 30ML (Q9963) As Ordered ONE; +ISOVUE-370 76% 100ML VIAL As Ordered ONE; -NS 1,000 ML IV ONE
== END ==
LOC: M RAD 12:59
PROVIDERS: ATTEND Physician Assistant Medical
DX: R10.9 Unspecified abdominal pain (principal)
CPT/HCPCS: 74177; Q9963; Q9967

== ENCOUNTER → 2022-02-19 | Outpatient (CLI) | payer OTHER ==
[~2022-02-19] MED LIST changes: -GASTROGRAFIN SOLUTION 30ML (Q9963) As Ordered ONE
== END ==
LOC: M RAD 17:04
PROVIDERS: ATTEND Otolaryngology
DX: D37.05 Neoplasm of uncertain behavior of pharynx (principal)
CPT/HCPCS: 70491; Q9967

== ENCOUNTER → 2022-08-26 | Outpatient (CLI) | payer OTHER ==
[~2022-08-26] MED LIST changes: -ISOVUE-370 76% 100ML VIAL As Ordered ONE
== END ==
LOC: M WHC 08:35
PROVIDERS: ATTEND Physician Assistant Medical
DX: R10.12 Left upper quadrant pain (principal)

== ENCOUNTER 2023-01-24 12:44 | Emergency (ER) | payer OTHER ==
[~2023-01-24] VITALS: Ht 165.1 cm; Wt 73.3 kg
[2023-01-24] MEDS ORDERED: CYCL5TAB (13:15)
[2023-01-24] MEDS ORDERED: FLUT50SP17 (13:15)
[2023-01-24] MEDS ORDERED: ACETAMINOPHEN 500 MG TAB PO ONE (13:50)
[2023-01-24 13:57] LABS: HEMATOCRIT 42.8 % (36.0-47.0); MEAN CORPUSCULAR HEMOGLOBIN 29.7 pg (27.0-33.0); MEAN CORPUSCULAR HGB CONC 32.7 g/dl (32.0-36.5); MEAN CORPUSCULAR VOLUME 90.7 fl (80.0-96.0); PLATELET COUNT, AUTOMATED 261 10^3/uL (150-450); RED BLOOD COUNT 4.72 10^6/uL (4.00-5.40); WHITE BLOOD COUNT 12.3 10^3/uL (4.0-10.0)
[2023-01-24 14:24] LABS: ALBUMIN 3.9 G/DL (3.2-5.2); ALKALINE PHOSPHATASE 76 U/L (46-116); ALT/SGPT 25 U/L (7.0-40); AST/SGOT 30 U/L (<34); BILIRUBIN,DIRECT 0.1 MG/DL (<0.4); BILIRUBIN,TOTAL 0.5 MG/DL (0.3-1.2); BLOOD UREA NITROGEN 6 MG/DL (9-23); CALCIUM LEVEL 8.6 MG/DL (8.5-10.1); CARBON DIOXIDE LEVEL 24 MMOL/L (20-31); CHLORIDE LEVEL 105 MMOL/L (98-107); CREATININE FOR GFR 0.64 MG/DL (0.55-1.30); GLOMERULAR FILTRATION RATE > 60.0 (>60); GLUCOSE, FASTING 89 MG/DL (60-100); POTASSIUM SERUM 4.9 MMOL/L (3.5-5.1); SODIUM LEVEL 138 MMOL/L (136-145); TOTAL PROTEIN 7.4 G/DL (5.7-8.2)
[2023-01-24] MEDS ORDERED: MIRA3350 PO (14:54)
[2023-01-24] MEDS ORDERED: HYDR-3713 PO (14:54)
[2023-01-24] MEDS ORDERED: KETOROLAC 30 MG/ML 1ML VIAL IV ONE (14:55)
[2023-01-24] MEDS ORDERED: ZONI50CA11 PO (14:58)
[2023-01-24] MEDS ORDERED: ZONISAMIDE 50 MG CAP (ZONEGRAN) PO STA (15:01)
[2023-01-24 15:36] VITALS: BP 108/62
[2023-01-24] MEDS ORDERED: ZONISAMIDE 50 MG CAP (ZONEGRAN) PO SCH (21:00)
== END 2023-01-24 15:41 | disposition home or self-care (01) ==
LOC: M ED 12:44
DX: G40.909 Epilepsy, unspecified, not intractable, without status epilepticus (principal); Z79.899 Other long term (current) drug therapy
CPT/HCPCS: 80048; 80076; 85027; 96374; 99284; J1885

== ENCOUNTER → 2023-02-02 | Outpatient (REF) | payer OTHER ==
[~2023-02-02] MED LIST changes: +CYCL5TAB; +FLUT50SP17; +HYDR-3713 PO; +MIRA3350 PO; +ZONI50CA11 PO
[2023-02-02 13:20] LABS: C REACTIVE PROTEIN QUANTITATIV < 0.40 MG/DL (<1.0)
[2023-02-02 13:23] LABS: ALBUMIN 3.8 G/DL (3.2-5.2); ALKALINE PHOSPHATASE 93 U/L (46-116); ALT/SGPT 14 U/L (7.0-40); AST/SGOT 12 U/L (<34); BILIRUBIN,TOTAL 0.5 MG/DL (0.3-1.2); BLOOD UREA NITROGEN 7 MG/DL (9-23); CALCIUM LEVEL 9.2 MG/DL (8.5-10.1); CARBON DIOXIDE LEVEL 25 MMOL/L (20-31); CHLORIDE LEVEL 107 MMOL/L (98-107); CREATININE FOR GFR 0.69 MG/DL (0.55-1.30); GLOMERULAR FILTRATION RATE > 60.0 (>60); GLUCOSE, FASTING 99 MG/DL (60-100); POTASSIUM SERUM 4.4 MMOL/L (3.5-5.1); SODIUM LEVEL 138 MMOL/L (136-145)
[2023-02-02 13:24] LABS: BASO # 0.1 10^3/uL (0.0-0.2); BASO % 0.8 % (0.0-1.0); EOS # 0.2 10^3/uL (0.0-0.5); HEMATOCRIT 41.7 % (36.0-47.0); HEMOGLOBIN 13.4 g/dl (12.0-15.5); LYMPH # 2.2 10^3/uL (1.5-5.0); LYMPH % 33.6 % (24.0-44.0); MEAN CORPUSCULAR HEMOGLOBIN 29.8 pg (27.0-33.0); MEAN CORPUSCULAR HGB CONC 32.1 g/dl (32.0-36.5); MEAN CORPUSCULAR VOLUME 92.9 fl (80.0-96.0); MONO # 0.5 10^3/uL (0.0-0.8); NEUTROPHILS # 3.7 10^3/uL (1.5-8.5); NEUTROPHILS % 55.4 % (36.0-66.0); PLATELET COUNT, AUTOMATED 261 10^3/uL (150-450); RED BLOOD COUNT 4.49 10^6/uL (4.00-5.40); WHITE BLOOD COUNT 6.6 10^3/uL (4.0-10.0)
[2023-02-02 13:54] LABS: ERYTHROCYTE SEDIMENTATION RATE 14 mm/hr (0-20)
== END ==
LOC: M SFHCADAM 08:50
PROVIDERS: ATTEND Physician Assistant
DX: M54.9 Dorsalgia, unspecified (principal)

== ENCOUNTER → 2023-02-02 | Outpatient (CLI) | payer OTHER | LOC: M ADAMS 08:59 | PROVIDERS: ATTEND Physician Assistant | DX: M54.9 Dorsalgia, unspecified (principal) ==

== ENCOUNTER → 2023-02-02 | Outpatient (CLI) | payer OTHER | LOC: M PLAIMG 09:59 | PROVIDERS: ATTEND Physician Assistant | DX: G40.909 Epilepsy, unspecified, not intractable, without status epilepticus (principal) ==

== ENCOUNTER → 2024-01-20 | Outpatient (REF) | payer OTHER ==
[~2024-01-20] MED LIST changes: -FLUT50SP17; +FLUTISP
[2024-01-20 18:26] LABS: ALBUMIN 4.1 G/DL (3.2-5.2); ALKALINE PHOSPHATASE 58 U/L (46-116); ALT/SGPT 23 U/L (7.0-40); AST/SGOT 21 U/L (<34); BILIRUBIN,TOTAL 0.3 MG/DL (0.3-1.2); BLOOD UREA NITROGEN 6 MG/DL (9-23); CALCIUM LEVEL 9.1 MG/DL (8.5-10.1); CARBON DIOXIDE LEVEL 28 MMOL/L (20-31); CHLORIDE LEVEL 104 MMOL/L (98-107); CHOLESTEROL LEVEL 185 MG/DL (<200); CHOLESTEROL RISK RATIO 2.34 (<5); CREATININE FOR GFR 0.59 MG/DL (0.55-1.30); GLOMERULAR FILTRATION RATE > 60.0 (>60); GLUCOSE, FASTING 75 MG/DL (60-100); HDL CHOLESTEROL 78.9 MG/DL (>40); LDL CHOLESTEROL 79.9 MG/DL (<100); NON-HDL-C 106.1 MG/DL; POTASSIUM SERUM 4.4 MMOL/L (3.5-5.1); SODIUM LEVEL 138 MMOL/L (136-145); THYROID STIMULATING HORMONE 2.237 uIU/ML (0.55-4.78); TOTAL PROTEIN 6.9 G/DL (5.7-8.2); TRIGLYCERIDES LEVEL 131 MG/DL (<150)
[2024-01-20 18:27] LABS: TOTAL 25(OH) VITAMIN D 12.3 NG/ML (20.0-100.0)
[2024-01-20 18:37] LABS: HEMOGLOBIN A1c 4.7 % (4.0-6.0)
[2024-01-20 18:58] LABS: HIV 1&2 SCREEN NEGATIVE (NEGATIVE)
== END ==
LOC: M LAB REF 16:21
PROVIDERS: ATTEND Physician Assistant
DX: Z11.9 Encounter for screening for infectious and parasitic diseases, unspecified (principal); E66.9 Obesity, unspecified; E55.9 Vitamin D deficiency, unspecified

== ENCOUNTER → 2024-09-29 | Outpatient (REF) | payer OTHER ==
[~2024-09-29] MED LIST changes: -CYCL5TAB; +CYCL5TAB4
[2024-09-29 17:32] LABS: BASO % 0.6 % (0.0-1.0); EOS # 0.1 10^3/uL (0.0-0.5); EOS % 1.2 % (0.0-3.0); HEMATOCRIT 38.6 % (36.0-47.0); HEMOGLOBIN 12.5 g/dl (12.0-15.5); LYMPH # 2.5 10^3/uL (1.5-5.0); LYMPH % 37.8 % (24.0-44.0); MEAN CORPUSCULAR HEMOGLOBIN 29.4 pg (27.0-33.0); MEAN CORPUSCULAR HGB CONC 32.4 g/dl (32.0-36.5); MEAN CORPUSCULAR VOLUME 90.8 fl (80.0-96.0); MONO # 0.4 10^3/uL (0.0-0.8); MONO % 6.8 % (2.0-8.0); NEUTROPHILS # 3.5 10^3/uL (1.5-8.5); NEUTROPHILS % 53.4 % (36.0-66.0); PLATELET COUNT, AUTOMATED 231 10^3/uL (150-450); RED BLOOD COUNT 4.25 10^6/uL (4.00-5.40); WHITE BLOOD COUNT 6.5 10^3/uL (4.0-10.0)
[2024-09-29 17:37] LABS: ALBUMIN 3.7 G/DL (3.2-5.2); ALKALINE PHOSPHATASE 73 U/L (35-104); ALT/SGPT 24 U/L (7.0-40); AST/SGOT 20 U/L (<34); BILIRUBIN,TOTAL 0.5 MG/DL (0.3-1.2); BLOOD UREA NITROGEN 10 MG/DL (9-23); C REACTIVE PROTEIN QUANTITATIV < 0.50 MG/DL (<1.0); CALCIUM LEVEL 9.5 MG/DL (8.5-10.1); CARBON DIOXIDE LEVEL 28 MMOL/L (20-31); CHLORIDE LEVEL 101 MMOL/L (98-107); CREATININE FOR GFR 0.65 MG/DL (0.55-1.30); ERYTHROCYTE SEDIMENTATION RATE 9 mm/hr (0-20); GLOMERULAR FILTRATION RATE > 60.0 (>60); GLUCOSE, FASTING 96 MG/DL (60-100); POTASSIUM SERUM 4.2 MMOL/L (3.5-5.1); RHEUMATOID FACTOR QUANT 5.5 IU/ML (<14); SODIUM LEVEL 139 MMOL/L (136-145); TOTAL PROTEIN 7.3 G/DL (5.7-8.2)
[2024-10-03 12:02] LABS: SSA SJOGRENS A <1.0 NEG AI (<1.0 NEG); SSB SJOGRENS B <1.0 NEG AI (<1.0 NEG)
[2024-10-03 14:18] LABS: HPV APTIMA Not Detected (Not Detected)
[2024-10-03 14:58] LABS: ANA SCREEN, IFA NEGATIVE (NEGATIVE)
[2024-10-03 22:53] LABS: CYCLIC CITRULLINATED PEPTIDE < 16 UNITS (<20)
== END ==
LOC: M LAB REF 16:58
PROVIDERS: ATTEND Physician Assistant
DX: M25.50 Pain in unspecified joint (principal); Z12.4 Encounter for screening for malignant neoplasm of cervix